=== PATIENT | female | born 1930 | race Caucasian/White ===

== ENCOUNTER → 2018-04-06 | Outpatient (CLI) | payer OTHER ==
--- NOTE | 2018-04-06 13:54 | RAD ---
Bilateral axillary ultrasound, 04/06/2018: HISTORY: Painful axillary lumps In the left axilla a single 2.3 x 2.2 x 1.8 cm solid mass is identified. It is lobulated in contour. There is internal color flow. A normal echogenic hilum is not evident. The appearance suggests a pathologically enlarged lymph node. In the right axilla there is a 1.3 x 1.1 x 0.6 cm solid nodule with internal color flow. Its margins are smooth. It does not demonstrate a normal fatty hilum. The node is not considered to be enlarged by short axis dimension, however, it does demonstrate abnormal internal architecture. No other axillary abnormality was identified. IMPRESSION: 1. Pathologically enlarged left axillary lymph node. This could be due to metastatic disease, lymphoma or infection. Clinical correlation suggested. Additional imaging which may be helpful would include mammography and chest CT, if clinically indicated. 2. Small right axillary lymph node demonstrating abnormal internal architecture. Electronically signed by: Иван Zheng MD (04/06/2018 1:49 PM) [facility]
--- NOTE | 2018-04-06 14:06 | RAD ---
EXAM: Chest, 2 views. HISTORY: Cough. COMPARISON: 01/06/2016 FINDINGS: 2 views the chest are obtained. There are small bilateral pleural effusions. There is biapical pleural parenchymal scarring. There is emphysema. There is a stable prominent right hilum likely due to prominent central pulmonary vessels shadows. The heart is normal in size. IMPRESSION: 1. Small bilateral pleural effusions. 2. Emphysema with biapical pleural parenchymal scarring. Electronically signed by: Moriah Monroe MD (04/06/2018 2:02 PM) [place] [id number]
== END | disposition home or self-care (01) ==
LOC: US 12:50
PROVIDERS: ATTEND Physician Assistant Medical
DX: J90 Pleural effusion, not elsewhere classified (principal); J43.8 Other emphysema; R59.0 Localized enlarged lymph nodes
CPT/HCPCS: 71046; 76641

== ENCOUNTER → 2018-04-19 | Outpatient (CLI) | payer OTHER ==
--- NOTE | 2018-04-19 16:16 | RAD ---
CT of the chest without contrast 04/19/2018 INDICATION: Left axillary mass COMPARISON STUDY: Chest radiograph April 06, 2018. Bilateral breast ultrasound April 06, 2018 TECHNIQUE: Multidetector CT imaging of the chest was performed without the administration of contrast. FINDINGS: Limited noncontrast evaluation of the mediastinum demonstrates heart size to be top normal. No significant pericardial effusion is identified. Extensive dense coronary calcification noted. Aortic valvular calcification is noted. Ectasia of ascending thoracic aorta is seen. Ascending thoracic aorta measures about 3.5 cm in diameter. Extensive arch vessel calcification noted. No pathologically enlarged mediastinal adenopathy is identified there are small bilateral pleural effusions with underlying compressive atelectasis. Severe apical predominant emphysematous changes are noted bilaterally. No pneumothorax is seen. No other focal consolidative infiltrate is seen. Allowing for areas of atelectasis in lung bases, remaining aerated lung demonstrates no significant mass or nodule.Ascites is seen throughout the upper abdomen. Liver morphology is atypical. Some subchondral sclerosis is noted not excluded. Evaluation of the solid viscera of the abdomen is limited without contrast. Small nonpathologic appearing lymph nodes are noted in the right axilla. There is a subcutaneous left axillary mass measuring 2.7 cm in diameter. This should be easily palpable. No acute osseous changes are identified. High-grade compression deformity of the T12 vertebral body noted. More mild compression deformity of the T11 vertebral body, T10, and T9 vertebral bodies noted. Diffuse osteopenia is seen. IMPRESSION: 1. Left axillary mass as described. Findings are concerning for pathologic adenopathy. Malignant adenopathy is possible. Biopsy recommended. 2. Small bilateral pleural effusions with underlying compressive atelectasis 3. Ascites 4. Multifocal, likely chronic compression deformities of the thoracic spine. 5. Other chronic changes as described above CT DOSING PQRS STATEMENT: One or more of the following individualized dose reduction techniques were utilized for this examination: 1. Automated exposure control 2. Adjustment of the mA and/or kV according to patient size 3. Use of iterative reconstruction technique Electronically signed by: Walter Gonzalez MD (04/19/2018 4:11 PM) [id number]
== END | disposition home or self-care (01) ==
LOC: CT 14:28
PROVIDERS: ATTEND Physician Assistant Medical
DX: R59.0 Localized enlarged lymph nodes (principal); J90 Pleural effusion, not elsewhere classified; J98.11 Atelectasis; R18.8 Other ascites
CPT/HCPCS: 71250